=== PATIENT | female | born 1945 | race Hispanic/Latino ===

== ENCOUNTER 2017-04-21 15:42 | Emergency (ER) | payer MEDICARE ==
[2017-04-21 15:46] VITALS: TEMP 98
[2017-04-21] MEDS ORDERED: TDAP Vaccine 0.5 mL Syr IM ONE (16:13)
[2017-04-21] MEDS ORDERED: Lidocaine/Epi 1% 1:100000 20 ML IJ ONE (16:14)
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
[2017-04-21] MEDS ORDERED: Lidocaine 1% w Epi 1:100,000 Inj ONE (16:28)
--- NOTE | 2017-04-21 17:02 | CT ---
PROCEDURE: CT HEAD WITHOUT CONTRAST. HISTORY: head injury COMPARISON: None available. TECHNIQUE: Axial computed tomography images were obtained through the head/brain without intravenous contrast. Radiation dose: Total exam DLP = 873 mGy-cm. This CT exam was performed using one or more of the following dose reduction techniques: Automated exposure control, adjustment of the mA and/or kV according to patient size, and/or use of iterative reconstruction technique. FINDINGS: HEMORRHAGE: No intracranial hemorrhage. BRAIN: No mass effect or edema. No atrophy or chronic microvascular ischemic changes. VENTRICLES: Unremarkable. No hydrocephalus. CALVARIUM: Unremarkable. PARANASAL SINUSES: Unremarkable as visualized. No significant inflammatory changes. MASTOID AIR CELLS: Unremarkable as visualized. No inflammatory changes. OTHER FINDINGS: None. IMPRESSION: No acute findings
--- NOTE | 2017-04-21 17:10 | CT ---
PROCEDURE: CT Cervical Spine without contrast HISTORY: <fall neck pain> COMPARISON: None available. TECHNIQUE: Axial computed tomography images were obtained of the cervical spine without the use of intravenous contrast. Coronal and sagittal reformatted images were created and reviewed. Radiation dose: Total exam DLP = 873 mGy-cm. This CT exam was performed using one or more of the following dose reduction techniques: Automated exposure control, adjustment of the mA and/or kV according to patient size, and/or use of iterative reconstruction technique. FINDINGS: VERTEBRAE: No definite fractures appreciated there is a borderline C4-5 spondylolisthesis of C4 questionably anterior to C5. Multilevel facet joint degenerative arthropathy seen as well of multilevel spondylosis. Mild of cervical curvature is mildly reversed at its inferior portion. No suspicious lytic or blastic changes identified. DISCS/SPINAL CANAL/NEURAL FORAMINA: No significant central canal or neural foraminal stenosis. Discs heights are grossly preserved. PARASPINAL SOFT TISSUES: Unremarkable. OTHER FINDINGS: None. IMPRESSION: No displaced fractures identified. There is a mild reversal inferior cervical curvature. Borderline C4-5 spondylolisthesis, likely degenerative.
[2017-04-21 19:09] VITALS: BP 150/84; PULSE 88; RESP 18; O2SAT 99
--- NOTE | 2017-04-22 13:13 | RAD ---
PROCEDURE: Right Foot Radiographs. HISTORY: Unspecified injury COMPARISON: None. FINDINGS: BONES: Normal. No fracture. JOINTS: Normal. SOFT TISSUES: Normal. OTHER FINDINGS: None. IMPRESSION: No acute findings related to/accounting for the clinical presentation. No preliminary report provided by emergency department personnel.
--- NOTE | 2017-04-22 17:08 | RAD ---
PROCEDURE: Bilateral Knee Radiographs. HISTORY: knee injury COMPARISON: None. FINDINGS: BONES: Right Knee: Normal. No fracture. Left Knee: Normal. No fracture. JOINTS: Right Knee: Normal. No osteoarthritis. Left knee: Normal. No osteoarthritis. SOFT TISSUES: Right Knee: Normal. Left Knee: Normal. JOINT EFFUSION: Right Knee: None. Left Knee: None. OTHER FINDINGS: None. IMPRESSION: No acute findings related to/accounting for the clinical presentation.
== END 2017-04-21 19:08 | disposition home or self-care (01) ==
LOC: H.ER 15:42
DX: S01.01XA Laceration without foreign body of scalp, initial encounter (principal); S01.81XA Laceration without foreign body of other part of head, initial encounter; S09.90XA Unspecified injury of head, initial encounter; M25.569 Pain in unspecified knee; M54.2 Cervicalgia; W19.XXXA Unspecified fall, initial encounter; Y92.89 Other specified places as the place of occurrence of the external cause

== ENCOUNTER 2017-04-26 14:54 | Emergency (ER) | payer MEDICARE, BC ==
[2017-04-26 15:01] VITALS: BP 128/69; PULSE 79; RESP 16; TEMP 98.2; O2SAT 98
--- NOTE | 2017-04-26 15:31 | ED PDOC ---
HPI: Wound Care - HPI Time Seen by Provider: 04/26/17 15:06 Chief Complaint (Nursing): Suture/Staple Removal Chief Complaint (Provider): Suture/Staple Removal History Per: Patient Exam Limitations: no limitations Onset/Duration Of Symptoms: Days (x6) Current Symptoms Are (Timing): Still Present Additional Complaint(s): Stacey Escamilla is a 72 year old female who presents to the emergency department for removal of stitches on scalp placed on 04/21/17 at [facility] status post a bad fall through glass door. At initial visit Pt had head CT done, Cervical Spine CT, bilateral knees, all of which were negative. Today Pt reports that she has left wrist pain which started after she left the ED. Pt notes generalized body soreness to which she is taking Motrin for. Pt reports maintaining soft food diet because it hurts her to chew. TMJ tenderness reports after fall. PMD: none provided Past Medical History Reviewed: Historical Data, Nursing Documentation, Vital Signs Vital Signs: Last Vital Signs Temp 98.2 F 04/26/17 14:57 Pulse 79 04/26/17 14:57 Resp 16 04/26/17 14:57 BP 128/69 04/26/17 14:57 Pulse Ox 98 04/26/17 14:57 - Family History Family History: States: No Known Family Hx - Immunization History Hx Tetanus Toxoid Vaccination: No Hx Influenza Vaccination: No Hx Pneumococcal Vaccination: No - Allergies Allergies/Adverse Reactions: Allergies Allergy/AdvReac Type Severity Reaction Status Date / Time No Known Allergies Allergy Verified 04/26/17 14:57 Review of Systems ROS Statement: Except As Marked, All Systems Reviewed And Found Negative Musculoskeletal: Positive for: Hand Pain (left wrist) Skin: Positive for: Other (stitches intact on scalp) Physical Exam - Reviewed Nursing Documentation Reviewed: Yes Vital Signs Reviewed: Yes - Physical Exam Appears: Positive for: Well, Non-toxic, No Acute Distress Skin: Positive for: Normal Color Eye Exam: Positive for: Normal appearance ENT: Positive for: Normal ENT Inspection, TM Is/Are (within normal limits) Pulses-Radial (L): 2+ Pulses-Radial (R): 2+ Extremity: Positive for: Normal ROM, Tenderness (dorsal aspect of left wrist), Swelling (moderate effusion to bilateral knees) Neurologic/Psych: Positive for: Alert, senior escrow officer II-XII, Oriented Comments: head incision site: Incision to frontal scalp extending to mid-forehead is healing well. 9 stitches intact. no ecchymosis, drainage to site, surrounding erythema or edema. - ECG O2 Sat by Pulse Oximetry: 98 (RA) Pulse Ox Interpretation: Normal Medical Decision Making Medical Decision Making: Initial Impression: Stitches removal Initial Plan: * Stitches removal * Xray wrist (left) Sutures removed by commercial lines underwriter without difficulty XR: NAD, as read by ADALBERTO Scribe Attestation: Documented by Nereida Chapa, acting as a scribe for Rafia Hall Provider Scribe Attestation: All medical record entries made by the Scribe were at my direction and personally dictated by me. I have reviewed the chart and agree that the record accurately reflects my personal performance of the history, physical exam, medical decision making, and the department course for this patient. I have also personally directed, reviewed, and agree with the discharge instructions and disposition. Disposition - Clinical Impression Clinical Impression: Removal of suture, Wrist pain - Patient ED Disposition Is Patient to be Admitted: No - Disposition Referrals: FAMILY PROVIDER,NO [Primary Care Provider] - Disposition: Routine/Home Disposition Time: 16:12 Condition: STABLE Instructions: Wrist Injury (ED), Stitches Removal (ED) Forms: [employer] (Anguillan) - POA Present On Arrival: None
--- NOTE | 2017-04-27 07:16 | RAD ---
PROCEDURE: Right Wrist Radiographs. HISTORY: pain s/p fall on Friday COMPARISON: None. FINDINGS: BONES: Normal. No fracture. JOINTS: Normal. No dislocation. SOFT TISSUES: Normal. OTHER FINDINGS: None. IMPRESSION: Normal right wrist radiographs.
== END 2017-04-26 16:16 | disposition home or self-care (01) ==
LOC: H.ER 14:54
DX: Z48.02 Encounter for removal of sutures (principal); M25.532 Pain in left wrist

== ENCOUNTER 2017-05-02 16:02 | Emergency (ER) | payer MEDICARE, BC ==
[2017-05-02 16:07] VITALS: BP 127/68; PULSE 89; RESP 18; TEMP 98.1; O2SAT 98
--- NOTE | 2017-05-02 16:39 | ED PDOC ---
HPI: Wound Care - HPI Time Seen by Provider: 05/02/17 16:09 Chief Complaint (Nursing): Suture/Staple Removal Chief Complaint (Provider): suture removal Additional Complaint(s): 72yo F in inED for eval of suture removal. states that she has some residual tenderness around scalp and muscle aches with headache. denies: nasuea vomiting weakness numbness in LE/UE denies vision/memory or gait.changes. pt has appt with orthopedics and neurology Past Medical History Reviewed: Historical Data, Nursing Documentation, Vital Signs Vital Signs: Last Vital Signs Temp 98.1 F 05/02/17 16:06 Pulse 89 05/02/17 16:06 Resp 18 05/02/17 16:06 BP 127/68 05/02/17 16:06 Pulse Ox 98 05/02/17 16:06 - Medical History PMH: No Chronic Diseases - Family History Family History: States: No Known Family Hx - Immunization History Hx Tetanus Toxoid Vaccination: No Hx Influenza Vaccination: No Hx Pneumococcal Vaccination: No - Home Medications Home Medications: Ambulatory Orders Medication Instructions Recorded Ketorolac Tromethamine [Toradol] 10 mg PO TID #20 cap 05/02/17 - Allergies Allergies/Adverse Reactions: Allergies Allergy/AdvReac Type Severity Reaction Status Date / Time No Known Allergies Allergy Verified 05/02/17 16:05 Review of Systems ROS Statement: Except As Marked, All Systems Reviewed And Found Negative Musculoskeletal: Positive for: Neck Pain Physical Exam - Reviewed Nursing Documentation Reviewed: Yes Vital Signs Reviewed: Yes - Physical Exam Appears: Positive for: Well, Non-toxic, No Acute Distress Head Exam: Positive for: ATRAUMATIC (sutures in place. 5 noted. no wound dehescience no erythema. mild tenderness noted. ), NORMAL INSPECTION, NORMOCEPHALIC Skin: Positive for: Normal Color, Warm, DRY Eye Exam: Positive for: EOMI, Normal appearance, PERRL Neck: Positive for: Normal, Painless ROM Cardiovascular/Chest: Positive for: Regular Rate, Rhythm Respiratory: Positive for: CNT, Normal Breath Sounds Gastrointestinal/Abdominal: Positive for: Normal Exam, Bowel Sounds, Soft Neurologic/Psych: Positive for: Alert, acute care registered nurse II-XII (intact), Oriented, Cerebellar Tests (intact), Gait (stable). Negative for: Motor/Sensory Deficits - ECG O2 Sat by Pulse Oximetry: 98 Medical Decision Making Medical Decision Making: pt offered head Ct in ED, but states she will f.u with her pmd/neurologist due to time constraints. Pt advised no further ER visits required for wound. stable VS and well appearing. Disposition - Clinical Impression Clinical Impression: Removal of suture - Patient ED Disposition Is Patient to be Admitted: No Counseled Patient/Family Regarding: Diagnosis, Need For Followup, Rx Given - Disposition Referrals: [facility] [Outside] Disposition: Routine/Home Disposition Time: 16:41 Condition: STABLE Prescriptions: Ketorolac Tromethamine [Toradol] 10 mg PO TID #20 cap Instructions: Head Injury (ED), Concussion (ED) Forms: [employer] (Lao)
== END 2017-05-02 16:53 | disposition home or self-care (01) ==
LOC: H.ER 16:02
DX: Z48.02 Encounter for removal of sutures (principal)

== ENCOUNTER 2017-06-17 00:19 | Emergency (ER) | payer OTHER, MEDICARE, BC ==
[2017-06-17 00:40] VITALS: BP 129/81; PULSE 91; RESP 16; TEMP 98.2; O2SAT 97
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
== END 2017-06-17 03:45 | disposition home or self-care (01) ==
LOC: H.ER 00:19
DX: M79.1 Myalgia (principal); V43.52XA Car driver injured in collision with other type car in traffic accident, initial encounter; Y92.410 Unspecified street and highway as the place of occurrence of the external cause; M17.11 Unilateral primary osteoarthritis, right knee; M85.80 Other specified disorders of bone density and structure, unspecified site; Z88.0 Allergy status to penicillin